=== PATIENT | female | born 1980 | race Caucasian/White ===

== ENCOUNTER 2018-07-25 13:31 | Emergency (ER) | payer BC ==
[2018-07-25] MEDS ORDERED: Ibuprofen 800 MG TAB ONE (13:48)
--- NOTE | 2018-07-25 18:26 | RAD ---
RIGHT KNEE FOUR VIEWS 07/25/18 No fracture or large joint effusion was seen. At most, there might be a small effusion. All bones supriya eared intact. The articular surfaces are normal in appearance. IMPRESSION: No acute bony finding. POS: HOME
== END 2018-07-25 14:12 | disposition home or self-care (01) ==
LOC: BURERS 13:31
DX: S80.01XA Contusion of right knee, initial encounter (principal); F17.210 Nicotine dependence, cigarettes, uncomplicated; Z79.899 Other long term (current) drug therapy; W18.49XA Other slipping, tripping and stumbling without falling, initial encounter

== ENCOUNTER 2019-12-02 10:14 | Emergency (ER) | payer BC ==
[2019-12-02] MEDS ORDERED: Ketorolac Tromethamine 30 MG/ML VIAL ONE (10:46)
[2019-12-02 10:49] LABS: Bilirubin Negative (Negative); Blood, Urine Moderate (Negative); Clarity Clear (Clear); Glucose, Urine (Dipstick) Negative (Negative); Ketone, Urine Negative (Negative); Leukocyte Small (Negative); Nitrite Negative (Negative); Protein, Urine (Dipstick) 30 mg/dL (Neg-Trace); Urobilinogen 0.2 mg/dL (Less than 2)
[2019-12-02 10:53] LABS: Specific Gravity, Urine 1.025 (1.002-1.036)
[2019-12-02 10:59] LABS: Pregnancy Test - Urine (BHCG) Negative (Negative); Pregu Control Background? CLEAR/WHITE (CLR/WHITE); Pregu Control Bar Appear? YES (CONTROL BAR); Specific Gravity 1.025 (1.002-1.036)
[2019-12-02 10:59] LABS: ALT (SGPT) 15 U/L (8-55); AST (SGOT) 14 U/L (5-34); Albumin 4.3 g/dL (3.5-5.0); Alkaline Phosphatase 56 U/L (40-110); Anion Gap 14 mmol/L (10-20); BUN (Urea Nitrogen) 12 mg/dL (7.0-18.7); Bilirubin, Total 0.3 mg/dL (0.2-1.2); Calc. Creatinine Clearance 0 mL/min (70-130); Carbon Dioxide 24 mmol/L (22-29); Chloride 106 mmol/L (98-107); Estimated GFR-MDRD 71; Glucose 103 mg/dL (70-105); Potassium 3.4 mmol/L (3.5-5.1); Protein, Total 7.3 g/dL (6.0-8.3); Sodium 141 mmol/L (136-145)
[2019-12-02 11:05] LABS: Hemoglobin 11.8 g/dL (12.0-16.0); Mean Corpuscular HGB CONC 30.1 g/dL (32.0-36.0); Mean Corpuscular Hemoglobin 24.5 pg (27.0-31.0); Mean Corpuscular Volume 81.2 fL (78.0-98.0); Mean Platelet Volume 9.5 fL (7.4-10.4); Platelet Count 294 thou/uL (130-400); RBC Distribution Width 15.6 % (11.5-14.5); Red Blood Cell (RBC) Count 4.82 mill/uL (4.20-5.40); White Blood Cell (WBC) Count 8.3 thou/uL (4.8-10.8)
[2019-12-02 11:07] LABS: Bacteria/HPF 2+ HPF (None Seen); Mucous/LPF 1+ LPF (<2+); RBC/HPF 0-3 HPF (0-3); Squamous Epithelial 0-3 HPF (0-3)
[2019-12-02 11:18] LABS: #Basophils 0.1 thou/uL (0.0-0.2); #Eosinphils 0.2 thou/uL (0.0-0.7); #Lymphocytes 2.4 thou/uL (1.20-3.40); #Monocytes 0.6 thou/uL (0.11-0.59); #Neutrophils 5.1 thou/uL (1.40-6.50); %Basophils 0.8 % (0.0-1.0); %Lymphocytes 28.5 % (21.0-51.0); %Monocytes 7.2 % (0.0-10.0); %Neutrophils 61.5 % (42.0-75.0); Anisocytosis SLIGHT = 6-15 cells (100X) (0-5/hpf); Hypochromia SLIGHT = 6-15 cells (100X) (0-5/hpf); MDiff Complete? YES
[2019-12-02] MEDS ORDERED: Tamsulosin HCl 0.4 MG CAP PO SCH (12:15)
[2019-12-02] MEDS ORDERED: Ondansetron PF 4 MG/2 ML Vial ONE (12:19)
[2019-12-02] MEDS ORDERED: Acetaminophen/Codeine 30-300mg Tablet ONE (12:31)
--- NOTE | 2019-12-02 20:13 | CT ---
CT ABDOMEN AND PELVIS WITHOUT CONTRAST: 12/02/[address] of the abdomen and pelvis was performed using no oral or IV contrast to evaluate right side d abdominal and flank pain. There are no prior scans available for comparison. The major finding on the study is bilateral renal calculi. There are also several distal right ureter al calculi near the UVJ that are generally no more than 4 mm wide but there appear to be several calc carolina in a row. This is causing moderate to severe right hydronephrosis. There is no obstruction on the left side, just nonobstructing stones in the left kidney. The urinary bladder is not very distended, but I do not see any calculi within it. The lung bases are clear. The liver, spleen, pancreas, adrenal glands, gallbladder and abdominal aort a were unremarkable within the limitations of a noncontrast study. There is no dilation of bowel to suggest obstruction. The appendix appears normal. Some of the wall o f the right colon was questionably thickened but there is no stranding around it. No free air or free fluid was seen. CT of the pelvis showed no pelvic masses, fluid collections, or pertinent findings other than the dis navjot ureteral calculi. There may be a 2 cm right ovarian cyst. IMPRESSION: 1. Several distal right ureteral calculi near the UVJ that are causing moderate to severe right hydronephrosis. 2. Several nonobstructing renal calculi bilaterally. Preliminary report discussed with Dr. Manzano at 11:21 on 12/02/19. POS: HOME
== END 2019-12-02 12:38 | disposition home or self-care (01) ==
LOC: BURERS 10:14
DX: N13.2 Hydronephrosis with renal and ureteral calculous obstruction (principal); F17.210 Nicotine dependence, cigarettes, uncomplicated
CPT/HCPCS: 74176; 80053; 81003; 81015; 81025; 85025; 96361; 96374; 96375; 99406; J1885; J2405

== ENCOUNTER 2020-09-03 18:03 | Emergency (ER) | payer OTHER, BC ==
[2020-09-03] MEDS ORDERED: Acetaminophen 500 MG TAB ONE (18:43)
== END 2020-09-03 19:27 | disposition home or self-care (01) ==
LOC: BURERS 18:03
DX: S76.191A Other specified injury of right quadriceps muscle, fascia and tendon, initial encounter (principal); E03.9 Hypothyroidism, unspecified; D64.9 Anemia, unspecified; F17.210 Nicotine dependence, cigarettes, uncomplicated; W01.0XXA Fall on same level from slipping, tripping and stumbling without subsequent striking against object, initial encounter

== ENCOUNTER 2021-06-13 20:29 | Emergency (ER) | payer BC | END 2021-06-13 22:07 | disposition home or self-care (01) | LOC: BURERS 20:29 | DX: S90.02XA Contusion of left ankle, initial encounter (principal); E03.9 Hypothyroidism, unspecified; F17.210 Nicotine dependence, cigarettes, uncomplicated; W22.8XXA Striking against or struck by other objects, initial encounter ==

== ENCOUNTER 2021-09-27 04:47 | Emergency (ER) | payer BC ==
[2021-09-27] MEDS ORDERED: Dicyclomine 20 MG TAB ONE (05:18)
[2021-09-27] MEDS ORDERED: Ketorolac Tromethamine 30 MG/ML VIAL ONE (05:18)
[2021-09-27] MEDS ORDERED: Morphine 2 MG/ML VIAL ONE (06:00)
[2021-09-27 06:58] LABS: Bilirubin Negative (Negative); Blood, Urine Negative (Negative); Clarity Clear (Clear); Glucose, Urine (Dipstick) Negative (Negative); Ketone, Urine Negative (Negative); Leukocyte Trace (Negative); Nitrite Negative (Negative); Protein, Urine (Dipstick) Negative (Neg-Trace); Urobilinogen 0.2 mg/dL (Less than 2); pH, Urine 5.5 (5.0-9.0)
[2021-09-27 07:07] LABS: Bacteria/HPF 2+ HPF (None Seen); RBC/HPF None Seen HPF (0-3)
[2021-09-27 07:08] LABS: Transitional Epithelial 0-3 HPF (None Seen); WBC/HPF 0-3 HPF (0-3)
== END 2021-09-27 07:20 | disposition home or self-care (01) ==
LOC: BURERS 04:47
DX: N20.0 Calculus of kidney (principal); N83.202 Unspecified ovarian cyst, left side; N83.201 Unspecified ovarian cyst, right side; F17.210 Nicotine dependence, cigarettes, uncomplicated; E03.9 Hypothyroidism, unspecified; D64.9 Anemia, unspecified; Z85.3 Personal history of malignant neoplasm of breast; Z85.841 Personal history of malignant neoplasm of brain
CPT/HCPCS: 74176; 81003; 81015; 96374; 96375; J1885; J2270

== ENCOUNTER 2022-03-10 17:24 | Emergency (ER) | payer BC | END 2022-03-10 18:25 | disposition home or self-care (01) | LOC: BURERS 17:24 | DX: M65.331 Trigger finger, right middle finger (principal); F17.210 Nicotine dependence, cigarettes, uncomplicated; E03.9 Hypothyroidism, unspecified; Z79.899 Other long term (current) drug therapy ==

== ENCOUNTER 2022-03-20 18:41 | Emergency (ER) | payer BC ==
[2022-03-20] MEDS ORDERED: methylPREDNISolone Sod Succ/PF 125 MG/2 ML VIAL ONE (18:51)
== END 2022-03-20 19:50 | disposition home or self-care (01) ==
LOC: BURERS 18:41
DX: J45.901 Unspecified asthma with (acute) exacerbation (principal); E03.9 Hypothyroidism, unspecified; F17.210 Nicotine dependence, cigarettes, uncomplicated
CPT/HCPCS: 71045; 87804; 96372; J2930; J7620

== ENCOUNTER 2022-07-31 18:36 | Emergency (ER) | payer BC ==
[2022-07-31 19:17] LABS: #Basophils 0.1 thou/uL (0.0-0.2); #Eosinphils 0.2 thou/uL (0.0-0.7); #Lymphocytes 2.6 thou/uL (1.20-3.40); #Monocytes 0.3 thou/uL (0.11-0.59); #Neutrophils 5.9 thou/uL (1.40-6.50); %Basophils 0.8 % (0.0-1.0); %Eosinophils 2.1 % (0.0-10.0); %Lymphocytes 28.9 % (21.0-51.0); %Monocytes 2.8 % (0.0-10.0); %Neutrophils 65.3 % (42.0-75.0); Hemoglobin 14.7 g/dL (12.0-16.0); Mean Corpuscular HGB CONC 31.7 g/dL (32.0-36.0); Mean Corpuscular Hemoglobin 29.5 pg (27.0-31.0); Mean Platelet Volume 9.8 fL (7.4-10.4); Platelet Count 289 10x3/uL (130-400); RBC Distribution Width 13.6 % (11.5-14.5); Red Blood Cell (RBC) Count 4.97 mill/uL (4.20-5.40); White Blood Cell (WBC) Count 9.1 10x3/uL (4.8-10.8)
[2022-07-31 19:33] LABS: ALT (SGPT) 39 U/L (8-55); AST (SGOT) 29 U/L (5-34); Albumin 4.3 g/dL (3.5-5.0); Alkaline Phosphatase 76 U/L (40-110); Anion Gap 12 mmol/L (10-20); BUN (Urea Nitrogen) 8 mg/dL (7.0-18.7); Bilirubin, Total 0.2 mg/dL (0.2-1.2); Calc. Creatinine Clearance 0 mL/min (70-130); Carbon Dioxide 25 mmol/L (22-29); Chloride 105 mmol/L (98-107); Estimated GFR 91; Globulin 3.4 g/dL (2.4-3.5); Glucose 150 mg/dL (70-105); Potassium 2.9 mmol/L (3.5-5.1); Protein, Total 7.7 g/dL (6.0-8.3); Sodium 139 mmol/L (136-145)
[2022-07-31 19:43] LABS: Bilirubin Negative (Negative); Blood, Urine Moderate (Negative); Clarity Clear (Clear); Glucose, Urine (Dipstick) Negative (Negative); Ketone, Urine Negative (Negative); Leukocyte Trace (Negative); Nitrite Negative (Negative); Protein, Urine (Dipstick) Negative (Neg-Trace)
[2022-07-31] MEDS ORDERED: Potassium Chloride 20 MEQ TAB ONE (19:48)
[2022-07-31] MEDS ORDERED: Acetaminophen 500 MG TAB ONE (19:50)
[2022-07-31 19:54] LABS: Bacteria/HPF Rare-Few HPF (None Seen); Calcium Oxalate Crystals 1+ HPF (None Seen)
== END 2022-07-31 20:14 | disposition home or self-care (01) ==
LOC: BURERS 18:36
DX: E11.65 Type 2 diabetes mellitus with hyperglycemia (principal); E87.6 Hypokalemia; N39.0 Urinary tract infection, site not specified; E03.9 Hypothyroidism, unspecified; F17.210 Nicotine dependence, cigarettes, uncomplicated; Z79.4 Long term (current) use of insulin; Z79.899 Other long term (current) drug therapy
CPT/HCPCS: 36416; 80053; 81003; 81015; 85025; 96360

== ENCOUNTER 2022-12-06 15:48 | Emergency (ER) | payer BC ==
[2022-12-06] MEDS ORDERED: traMADol HCl 50 MG TAB ONE (16:45)
[2022-12-06] MEDS ORDERED: Mag-Al Plus 1200 MG/1200 MG/120 MG/30 ML UDCUP ONE (17:16)
== END 2022-12-06 17:25 | disposition home or self-care (01) ==
LOC: BURERS 15:48
DX: M79.641 Pain in right hand (principal); E11.9 Type 2 diabetes mellitus without complications; E03.9 Hypothyroidism, unspecified; D50.9 Iron deficiency anemia, unspecified; F17.210 Nicotine dependence, cigarettes, uncomplicated; Z79.4 Long term (current) use of insulin; Z79.899 Other long term (current) drug therapy
CPT/HCPCS: 99283

== ENCOUNTER 2024-12-30 18:31 | Emergency (ER) | payer BC ==
[2024-12-30] MEDS ORDERED: Dexamethasone 4 MG TAB ONE (18:51)
== END 2024-12-30 18:53 | disposition home or self-care (01) ==
LOC: BURERS 18:31
DX: M25.531 Pain in right wrist (principal); E03.9 Hypothyroidism, unspecified; E11.40 Type 2 diabetes mellitus with diabetic neuropathy, unspecified; K21.9 Gastro-esophageal reflux disease without esophagitis; J45.909 Unspecified asthma, uncomplicated; E78.5 Hyperlipidemia, unspecified; F17.210 Nicotine dependence, cigarettes, uncomplicated; X50.9XXA Other and unspecified overexertion or strenuous movements or postures, initial encounter; Y99.0 Civilian activity done for income or pay; Z79.4 Long term (current) use of insulin; Z79.899 Other long term (current) drug therapy
CPT/HCPCS: 99283; J8540